=== PATIENT | male | born 1950 | race Caucasian/White ===

== ENCOUNTER 2017-01-29 16:04 | Emergency (ER) | payer MEDICARE, OTHER ==
[~2017-01-29] VITALS: Ht 188 cm; Wt 96.0 kg
[~2017-01-29 16:04] MED LIST: ASPI1TAB69 PO; ELVI1TAB3 PO; ERGO1CAP10 PO; LOSA50TA2 PO; ROSU5 PO; VALA1TAB PO
[2017-01-29 16:06] VITALS: BP 146/83; PULSE 84; RESP 24; TEMP 97.9; O2SAT 94
--- NOTE | 2017-01-29 16:49 | PD ---
HPI . Left leg swelling for the past 4 days Chief Complaint: Musculoskeletal Complaint Time Seen by Provider: 16:49 Travel History International Travel<30 days: No Contact w/Intl Traveler<30days: No Traveled to known affect area: No History of Present Illness HPI 66-year-old male with history of hypertension, HIV diagnosed back in 1983, history of IV drug use in remission here with complaints of left leg swelling for the past 4 days. Patient tells me that his leg has progressively swollen over the past 4 days and is significantly tender to touch. He admits to pain in the area. He was seen by his new primary care provider today and recommended to come to the emergency department for evaluation of possible DVT. Patient also reports the start of swelling in his right lower extremity. He denies any recent travel or periods of immobility. He describes the pain as a throbbing sensation. The pain is localized in the lower Rolo's and does not radiate elsewhere. He denies any chest pain or shortness of breath. He has no other complaints. He follows with Dr. Daniels for his HIV. He denies starting any new medications. PFSH Past Medical History Cirrhosis: Yes Immune Disorder: Yes Social History Tobacco Use: No Allergies-Medications (Allergen,Severity, Reaction): Coded Allergies: No Known Allergies (Unverified , 01/29/17) Reported Meds & Prescriptions Reported Meds & Active Scripts Active Percocet (Oxycodone-Acetaminophen) 10-325 mg Tab 1 Tab PO Q6H PRN Reported Aspirin 81 Mg Chew 81 Mg CHEW 3X/WEEK Lumigan Opth Drops (Bimatoprost) 0.01% Soln 1 Drop EACH EYE HS Valacyclovir (Valacyclovir HCl) 1 Gm Tab 1,000 Mg PO DAILY Losartan-Hydrochlorothiazide 50-12.5 Mg Tab 1 Tab PO DAILY Genvoya (Jxcbsltygpwa-Awfdjhjetn-Vjvtkcspehqm-Tenofvir) [phone] Mg Tab 1 Tab PO DAILY Crestor (Rosuvastatin Calcium) 5 Mg Tab 5 Mg PO MON,WED,FRI Review of Systems General / Constitutional: No: Fever Eyes: No: Visual changes HENT: No: Headaches Cardiovascular: No: Chest Pain or Discomfort Respiratory: No: Shortness of Breath Gastrointestinal: No: Abdominal Pain Genitourinary: No: Dysuria Musculoskeletal: Positive: Pain (lower extremities, ), Other (swelling legs L>R ) Skin: No Rash Neurologic: No: Weakness Psychiatric: No: Depression Endocrine: No: Polydipsia Hematologic/Lymphatic: No: Easy Bruising Physical Exam Narrative GENERAL: AAO x 3, no acute distress, Well-nourished, well-developed patient. SKIN: Warm and dry. No visible rashes or bruising. stretched appearance of left lower extremity, warm to touch compared to right, HEAD: Normocephalic and atraumatic. EYES: No scleral icterus. No injection or drainage. EOM intact, PERRLA ENT: No nasal drainage noted. Mucous membranes pink. Airway patent. NECK: Supple, trachea midline. No JVD. CARDIOVASCULAR: Regular rate and rhythm without murmurs, gallops, or rubs. RESPIRATORY: Breath sounds equal bilaterally. No accessory muscle use. No rhonchi or rales. GASTROINTESTINAL: Abdomen soft, non-tender, nondistended. EXTREMITIES: No cyanosis. Left leg with 3+ edema, tender to touch throughout, pedal pulses intact but diminished on left side, right LE with mild edema and minimal tenderness to touch, ROM normal b/l but limited on left due to pain. BACK: Nontender without obvious deformity. No CVA tenderness. 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 Data Data Last Documented VS Vital Signs Date Time Temp Pulse Resp B/P Pulse Ox O2 Delivery O2 Flow Rate FiO2 01/29/17 17:36 74 16 142/80 96 Room Air 01/29/17 16:06 97.9 Orders Us Leg Venous Doppler Bilat (01/29/17 16:54) Complete Blood Count With Diff (01/29/17 16:54) Comprehensive Metabolic Panel (01/29/17 16:54) Iv Access Insert/Monitor (01/29/17 16:54) Ecg Monitoring (01/29/17 16:54) Oximetry (01/29/17 16:54) Oxygen Administration (01/29/17 16:54) Sodium Chloride 0.9% Flush (Ns Flush) (01/29/17 17:00) Labs Laboratory Tests Test 01/29/17 17:30 White Blood Count 4.5 TH/MM3 Red Blood Count 3.54 MIL/MM3 Hemoglobin 12.0 GM/DL Hematocrit 36.3 % Mean Corpuscular Volume 102.4 FL Mean Corpuscular Hemoglobin 33.8 PG Mean Corpuscular Hemoglobin 33.1 % Concent Red Cell Distribution Width 13.2 % Platelet Count 152 TH/MM3 Mean Platelet Volume 6.9 FL Neutrophils (%) (Auto) 57.9 % Lymphocytes (%) (Auto) 26.5 % Monocytes (%) (Auto) 11.3 % Eosinophils (%) (Auto) 3.7 % Basophils (%) (Auto) 0.6 % Neutrophils # (Auto) 2.6 TH/MM3 Lymphocytes # (Auto) 1.2 TH/MM3 Monocytes # (Auto) 0.5 TH/MM3 Eosinophils # (Auto) 0.2 TH/MM3 Basophils # (Auto) 0.0 TH/MM3 CBC Comment DIFF FINAL Differential Comment Sodium Level 141 MEQ/L Potassium Level 4.1 MEQ/L Chloride Level 103 MEQ/L Carbon Dioxide Level 29.8 MEQ/L Anion Gap 8 MEQ/L Blood Urea Nitrogen 13 MG/DL Creatinine 1.02 MG/DL Estimat Glomerular Filtration 73 ML/MIN Rate Random Glucose 95 MG/DL Calcium Level 8.6 MG/DL Total Bilirubin 0.5 MG/DL Aspartate Amino Transf 26 U/L (AST/SGOT) Alanine Aminotransferase 27 U/L (ALT/SGPT) Alkaline Phosphatase 71 U/L Total Protein 6.9 GM/DL Albumin 3.3 GM/DL [facility] Medical Decision Making Medical Screen Exam Complete: Yes Emergency Medical Condition: Yes Medical Record Reviewed: Yes Differential Diagnosis DVT, lymphedema, likely CHF, less likely bony abnormality Narrative Course This is a 66-year-old male presenting with acute onset of left lower extremity edema over the past 4 days that is progressively worsening. It appears that he may have a DVT in this extremity. Ultrasound has been ordered on bilateral lower extremities as there appears to be some swelling in the right leg. Labs have also been ordered. Further recommendations will be made pending workup. Laboratory Tests Test 01/29/17 17:30 White Blood Count 4.5 TH/MM3 Red Blood Count 3.54 MIL/MM3 Hemoglobin 12.0 GM/DL Hematocrit 36.3 % Mean Corpuscular Volume 102.4 FL Mean Corpuscular Hemoglobin 33.8 PG Mean Corpuscular Hemoglobin 33.1 % Concent Red Cell Distribution Width 13.2 % Platelet Count 152 TH/MM3 Mean Platelet Volume 6.9 FL Neutrophils (%) (Auto) 57.9 % Lymphocytes (%) (Auto) 26.5 % Monocytes (%) (Auto) 11.3 % Eosinophils (%) (Auto) 3.7 % Basophils (%) (Auto) 0.6 % Neutrophils # (Auto) 2.6 TH/MM3 Lymphocytes # (Auto) 1.2 TH/MM3 Monocytes # (Auto) 0.5 TH/MM3 Eosinophils # (Auto) 0.2 TH/MM3 Basophils # (Auto) 0.0 TH/MM3 CBC Comment DIFF FINAL Differential Comment Sodium Level 141 MEQ/L Potassium Level 4.1 MEQ/L Chloride Level 103 MEQ/L Carbon Dioxide Level 29.8 MEQ/L Anion Gap 8 MEQ/L Blood Urea Nitrogen 13 MG/DL Creatinine 1.02 MG/DL Estimat Glomerular Filtration 73 ML/MIN Rate Random Glucose 95 MG/DL Calcium Level 8.6 MG/DL Total Bilirubin 0.5 MG/DL Aspartate Amino Transf 26 U/L (AST/SGOT) Alanine Aminotransferase 27 U/L (ALT/SGPT) Alkaline Phosphatase 71 U/L Total Protein 6.9 GM/DL Albumin 3.3 GM/DL US negative for acute DVT. Discussed with patient. Dr. Grider also examined the patient. He recommends Percocet for pain. Patient advised to f/u with his PCP and use compression stocking. Diagnosis Primary Impression: Edema Qualified Code: R60.0 - Localized edema Additional Impression: Left leg pain Patient Instructions: General Instructions Additional Instructions: Please return to emergency department if your symptoms return or worsen. Follow up with your primary care provider. Take medications as prescribed. Try to keep your leg elevated. You can use compression stockings to help reduce the swelling. Med/Other Pt SpecificInfo: Prescription(s) given Scripts Oxycodone-Acetaminophen (Percocet)10-325 mg Tab1 Tab PO Q6H PRN (PAIN) #12 TAB Ref 0 Prov:Gabriel Grider MD 01/29/17 Disposition: 01 DISCHARGE HOME Condition: Stable [place] Blas Jan 29, 2017 16:49
[2017-01-29] MEDS ORDERED: SODIUM CHLORIDE 0.9% FLUSH 10 ML FLUSH IVF PRN (17:00)
[2017-01-29 17:17] VITALS: PULSE 74; RESP 16
[2017-01-29 17:36] VITALS: BP 142/80; PULSE 74; RESP 16; O2SAT 96
[2017-01-29] MEDS ORDERED: LUMI0.01 EACH EYE (17:41)
[2017-01-29] MEDS ORDERED: ASPI81CH CHEW (17:41)
[2017-01-29 18:06] LABS: AUTOMATED NEUTROPHIL # 2.6 TH/MM3 (1.8-7.7); BASOPHIL % 0.6 % (0.0-2.0); EOSINOPHIL # 0.2 TH/MM3 (0-0.4); EOSINOPHIL % 3.7 % (0.0-4.0); HEMATOCRIT 36.3 % (39.0-51.0); HEMO FLAGS DIFF FINAL; LYMPH % 26.5 % (9.0-44.0); LYMPHOCYTE # 1.2 TH/MM3 (1.0-4.8); MEAN CELL VOLUME 102.4 FL (80.0-100.0); MEAN CORPUSCULAR HEMOGLOBIN 33.8 PG (27.0-34.0); MEAN CORPUSCULAR HGB CONC 33.1 % (32.0-36.0); MONO % 11.3 % (0.0-8.0); NEUT % 57.9 % (16.0-70.0); PLATELET COUNT 152 TH/MM3 (150-450); RED BLOOD COUNT 3.54 MIL/MM3 (4.50-5.90); RED CELL DISTRIBUTION WIDTH 13.2 % (11.6-17.2); WHITE BLOOD COUNT 4.5 TH/MM3 (4.0-11.0)
[2017-01-29 18:15] LABS: ANION GAP 8 MEQ/L (5-15); AST (GOT) 26 U/L (15-37); BICARBONATE 29.8 MEQ/L (21.0-32.0); BLOOD UREA NITROGEN 13 MG/DL (7-18); CHLORIDE 103 MEQ/L (98-107); GLOMERULAR FILTRATION RATE 73 ML/MIN (>89); POTASSIUM 4.1 MEQ/L (3.5-5.1); SODIUM (NA) 141 MEQ/L (136-145)
[2017-01-29 18:18] LABS: ALKALINE PHOSPHATASE 71 U/L (45-117); ALT (GPT) 27 U/L (12-78); TOTAL BILIRUBIN ADULT 0.5 MG/DL (0.2-1.0)
--- NOTE | 2017-01-29 20:01 | RADRPT ---
EXAM DATE/TIME: 01/29/2017 19:03 [facility] COMPARISON: No previous studies available for comparison. INDICATIONS : Bilateral leg pain and swelling. MEDICAL HISTORY : Hypertension. HIV. Hepatitis C. Hyperlipidemia. Liver cancer. Cirrhosis. Bilateral cataracts. SURGICAL HISTORY : Hernia repair. ENCOUNTER: Initial ACUITY: 1 day PAIN SCORE: 2/10 LOCATION: Bilateral legs. TECHNIQUE: Venous ultrasound of the left and right leg was performed from the inguinal ligament to the proximal calf. Real-time, color Doppler and spectral tracing, compression and augmentation techniques were us ed. FINDINGS: RIGHT LEG: There is normal compressibility of the deep venous system from the inguinal region to the proximal ca lf. No echogenic clot is seen in the lumen of the common femoral, femoral, popliteal, and posterior tibial veins. There is a normal response of the venous system to proximal and distal augmentation an d respiration. LEFT LEG: There is normal compressibility of the deep venous system from the inguinal region to the proximal ca lf. No echogenic clot is seen in the lumen of the common femoral, femoral, popliteal, and posterior tibial veins. There is a normal response of the venous system to proximal and distal augmentation an d respiration. CONCLUSION: Normal examination. Ap Burdick MD on January 29, 2017 at 19:59 Board Certified Radiologist. This report was verified electronically.
[2017-01-29] MEDS ORDERED: PERC10TA27 PO (20:10)
[2017-01-29 20:45] VITALS: BP 142/77
[2017-01-30] MEDS ORDERED: MEDICAL COMPRES1 MIS (16:00)
[2017-02-02] MEDS ORDERED: LUMI0.01 EACH EYE (13:15)
== END 2017-01-29 20:45 | disposition home or self-care (01) ==
LOC: NEPD 16:04
DX: R60.0 Localized edema (principal); M79.605 Pain in left leg
CPT/HCPCS: 80053; 85025; 93970; 99284

== ENCOUNTER → 2017-03-24 | Outpatient (CLI) | payer MEDICARE ==
[~2017-03-24] MED LIST changes: -ASPI1TAB69 PO; +ASPI81CH CHEW; -ERGO1CAP10 PO; +LUMI0.01 EACH EYE; +MEDICAL COMPRES1 MIS; +PERC10TA27 PO
[2017-03-24 11:16] LABS: CHLAMYDIA PCR NOT DETECTED (NOT DETECT); NEISSERIA PCR NOT DETECTED (NOT DETECT)
== END ==
LOC: CLAB 06:54
PROVIDERS: ATTEND Specialist
DX: B20 Human immunodeficiency virus [HIV] disease (principal); R73.09 Other abnormal glucose; Z20.2 Contact with and (suspected) exposure to infections with a predominantly sexual mode of transmission; R82.90 Unspecified abnormal findings in urine
CPT/HCPCS: 36415; 82947; 86592; 87086; 87491; 87591

== ENCOUNTER → 2017-05-22 | Outpatient (CLI) | payer MEDICARE ==
[2017-05-22 10:00] LABS: CHLAMYDIA PCR NOT DETECTED (NOT DETECT); NEISSERIA PCR NOT DETECTED (NOT DETECT)
== END ==
LOC: CLAB 07:18
PROVIDERS: ATTEND Specialist
DX: Z20.2 Contact with and (suspected) exposure to infections with a predominantly sexual mode of transmission (principal)
CPT/HCPCS: 36415; 86592; 86780; 87491; 87591

== ENCOUNTER → 2017-06-11 | Outpatient (CLI) | payer MEDICARE | LOC: CLAB 07:20 | PROVIDERS: ATTEND Specialist | DX: Z02.83 Encounter for blood-alcohol and blood-drug test (principal) | CPT/HCPCS: 80307 ==

== ENCOUNTER → 2017-06-24 | Outpatient (CLI) | payer MEDICARE | LOC: CLAB 13:18 | PROVIDERS: ATTEND Specialist | DX: Z02.83 Encounter for blood-alcohol and blood-drug test (principal) | CPT/HCPCS: 36415; 80307 ==

== ENCOUNTER → 2017-10-21 | Outpatient (CLI) | payer MEDICARE ==
[~2017-10-21] MED LIST changes: +ASPI-516 CHEW; -ASPI81CH CHEW
[2017-10-21 08:28] LABS: BACTERIA, URINE RARE /hpf; BILIRUBIN, URINE NEG (NEG); BLOOD, URINE NEG (NEG); GLUCOSE,URINE NEG (NEG); KETONE, URINE NEG (NEG); MUCUS URINE FEW /lpf (OCC); NITRITE,URINE NEG (NEG); PH, URINE 6.5 (5.0-8.5); SQUAMOUS EPITHELIAL CELL URINE <1 /hpf (0-5); URINE COLOR YELLOW (YELLW/STRAW); URINE LEUKOCYTE ESTERASE SMALL (NEG); WHITE BLOOD CELL CLUMPS RARE
[2017-10-21 08:53] LABS: ALBUMIN 3.5 GM/DL (3.4-5.0); ALT (GPT) 19 U/L (12-78); AST (GOT) 16 U/L (15-37); BICARBONATE 29.8 MEQ/L (21.0-32.0); BLOOD UREA NITROGEN 9 MG/DL (7-18); CHLORIDE 111 MEQ/L (98-107); CHOLESTEROL 144 MG/DL (120-200); CREATININE 1.18 MG/DL (0.60-1.30); GLOMERULAR FILTRATION RATE 61 ML/MIN (>89); GLUCOSE,FASTING 92 MG/DL (74-99); SODIUM (NA) 147 MEQ/L (136-145); TRIGLYCERIDES 107 MG/DL (42-150)
[2017-10-21 09:03] LABS: ALKALINE PHOSPHATASE 79 U/L (45-117); CHOLESTEROL/ HDL RATIO 2.28 RATIO; HDL CHOLESTEROL 63.1 MG/DL (40.0-60.0); LDL CHOLESTEROL 60 MG/DL (0-99); TOTAL BILIRUBIN ADULT 0.8 MG/DL (0.2-1.0); TOTAL PROTEIN 7.6 GM/DL (6.4-8.2)
[2017-10-21 10:26] LABS: HEMOGLOBIN A1C 5.5 % (4.3-6.0)
[2017-10-23 03:51] LABS: MEASLES AB IGG >300.00 AU/mL (<25.00); MUMPS IGG AB GREATER THAN 300.00 AU/mL (<9.00)
[2017-10-23 17:50] LABS: C-PEPTIDE 2.84 ng/mL (0.80-3.85)
== END ==
LOC: CLAB 07:43
PROVIDERS: ATTEND Specialist
DX: B20 Human immunodeficiency virus [HIV] disease (principal); E29.1 Testicular hypofunction; E55.9 Vitamin D deficiency, unspecified; E78.5 Hyperlipidemia, unspecified; R79.9 Abnormal finding of blood chemistry, unspecified; Z02.83 Encounter for blood-alcohol and blood-drug test; Z79.899 Other long term (current) drug therapy
CPT/HCPCS: 36415; 80053; 80061; 81001; 82306; 82550; 82985; 83036; 83525; 84443; 84681; 86355; 86357; 86359; 86360; 86735; 86762; 87536; G0480

== ENCOUNTER → 2017-11-03 | Outpatient (CLI) | payer MEDICARE ==
[2017-11-03 14:29] LABS: RPR SCREEN FOR REFLEX NON-REACTIVE (NON-REACTVE)
[2017-11-03 19:27] LABS: AMORPHOUS SEDIMENT, URINE RARE; BILIRUBIN, URINE NEG (NEG); BLOOD, URINE NEG (NEG); GLUCOSE,URINE NEG (NEG); HYALINE CAST, URINE 4 /lpf (RARE); KETONE, URINE NEG (NEG); MUCUS URINE FEW /lpf (OCC); NITRITE,URINE NEG (NEG); SQUAMOUS EPITHELIAL CELL URINE 1 /hpf (0-5); URINE COLOR YELLOW (YELLW/STRAW); URINE LEUKOCYTE ESTERASE SMALL (NEG)
== END ==
LOC: CLAB 13:13
PROVIDERS: ATTEND Specialist
DX: R10.9 Unspecified abdominal pain (principal); R30.0 Dysuria; Z20.2 Contact with and (suspected) exposure to infections with a predominantly sexual mode of transmission
CPT/HCPCS: 36415; 81001; 86592; 87086; 87491; 87591

== ENCOUNTER → 2017-12-21 | Outpatient (CLI) | payer MEDICARE ==
[2017-12-21 10:41] LABS: ALBUMIN 3.8 GM/DL (3.4-5.0); ALT (GPT) 26 U/L (12-78); AST (GOT) 25 U/L (15-37); BICARBONATE 31.3 MEQ/L (21.0-32.0); BLOOD UREA NITROGEN 11 MG/DL (7-18); CALCIUM 9.4 MG/DL (8.5-10.1); CHLORIDE 111 MEQ/L (98-107); CREATININE 1.27 MG/DL (0.60-1.30); GLOMERULAR FILTRATION RATE 56 ML/MIN (>89); GLUCOSE,FASTING 96 MG/DL (74-99); SODIUM (NA) 147 MEQ/L (136-145)
[2017-12-21 10:42] LABS: ALKALINE PHOSPHATASE 81 U/L (45-117); TOTAL BILIRUBIN ADULT 0.6 MG/DL (0.2-1.0); TOTAL PROTEIN 7.9 GM/DL (6.4-8.2)
== END ==
LOC: CLAB 09:14
PROVIDERS: ATTEND Specialist
DX: B20 Human immunodeficiency virus [HIV] disease (principal); R79.9 Abnormal finding of blood chemistry, unspecified
CPT/HCPCS: 36415; 80053; 80307; 86355; 86357; 86359; 86360; 87536; G0481

== ENCOUNTER → 2018-01-12 | Outpatient (CLI) | payer MEDICAID, MEDICARE | LOC: CLAB 11:24 | PROVIDERS: ATTEND Specialist | DX: F51.09 Other insomnia not due to a substance or known physiological condition (principal); Z79.899 Other long term (current) drug therapy; B20 Human immunodeficiency virus [HIV] disease; R79.9 Abnormal finding of blood chemistry, unspecified | CPT/HCPCS: 80307 ==

== ENCOUNTER → 2018-01-27 | Outpatient (CLI) | payer MEDICARE | LOC: CLAB 14:56 | PROVIDERS: ATTEND Specialist | DX: Z79.899 Other long term (current) drug therapy (principal); Z79.891 Long term (current) use of opiate analgesic | CPT/HCPCS: 80307 ==